=== PATIENT | male | born 1955 | race Caucasian/White ===

== ENCOUNTER → 2016-08-17 | Outpatient (CLI) | payer BC ==
[2016-08-17 12:34] LABS: Basophils # (A) 0.1 k/uL (0-0.2); Basophils % (A) 1 %; CH 32.1; CHCM 34.5; Eosinophils # (A) 0.3 k/uL (0-0.7); Eosinophils % (A) 3 %; HCT 40.5 % (39.0-53.0); HDW 2.82; HGB 13.7 gm/dL (13.0-17.5); Luc # (Auto) 0.28; Luc % (Auto) 3; Lymphocytes % (A) 24 %; MCH 31.7 pg (25.0-35.0); MCHC 33.9 g/dL (31.0-37.0); MCV 93.4 fL (80.0-100.0); Monocytes # (A) 0.6 k/uL (0-1.0); Monocytes % (A) 7 %; Neutrophils # (A) 5.3 k/uL (1.3-7.7); Neutrophils % (A) 63 %; RBC 4.33 m/uL (4.30-5.90); RDW 13.2 % (11.5-15.5); WBC 8.5 k/uL (3.8-10.6); WBC (Perox) 8.29
--- NOTE | 2016-08-17 12:34 | US ---
EXAMINATION TYPE: US abdomen complete DATE OF EXAM: 08/17/2016 11:52 AM COMPARISON: NONE CLINICAL HISTORY: 60-year-old male R10 ABD PAIN. Abdominal pain superior to umbilicus for 4 days, jack n started out worse and has diminished since. TECHNIQUE: Multiple sonographic images of the abdomen are obtained. FINDINGS: Liver Length: 20.2 cm Gallbladder Wall: 0.2 cm CBD: 0.7 cm Spleen: 9.7 cm Right Kidney: 11.4 x 5.6 x 6.3 cm Left Kidney: 10.2 x 4.9 x 7.1 cm Pancreas: Suboptimal visualization of the pancreatic tail secondary to shadowing from bowel gas. Vis ualized portions show no gross abnormal. Liver: Enlarged, echogenic, and markedly attenuating. This secondarily limits assessment for focal le charbel. Gallbladder: No abnormal gallbladder distention, wall thickening, pericholecystic fluid, or shadowin g calculi. Evidence for sonographic Natarajan's sign: no CBD: Mildly dilated. Spleen: wnl Right Kidney: No hydronephrosis Left Kidney: No hydronephrosis. There is a 1.8 cm cyst in the upper pole. 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 Impression to Megha Lorenzo at office @1200 IMPRESSION: 1. Hepatomegaly and marked hepatic steatosis. 2. Mild dilatation of the bile duct may be chronic for this patient. Correlate with alkaline phosphat ase and bilirubin levels to exclude dilatation from biliary obstruction. 3. Targeted scanning along the supraumbilical region shows no discrete hernia or other abnormality.
[2016-08-17 13:08] LABS: ALT 35 U/L (21-72); AST 26 U/L (17-59); Alkaline Phosphatase 63 U/L (38-126); Amylase 55 U/L (30-110); Anion Gap 12 mmol/L; Blood Urea Nitrogen 14 mg/dL (9-20); Calcium 9.4 mg/dL (8.4-10.2); Carbon Dioxide 29 mmol/L (22-30); Chloride 100 mmol/L (98-107); Glucose 110 mg/dL (74-99); Non-African American GFR(MDRD) >60 (>60 ml/min/1.73 sqM); Potassium 4.5 mmol/L (3.5-5.1); Sodium 141 mmol/L (137-145); Total Bilirubin 0.8 mg/dL (0.2-1.3); Total Protein 7.7 g/dL (6.3-8.2)
== END | disposition home or self-care (01) ==
LOC: RADUSWWP 11:05
PROVIDERS: ATTEND Family Medicine
DX: K76.0 Fatty (change of) liver, not elsewhere classified (principal); R16.0 Hepatomegaly, not elsewhere classified; K83.8 Other specified diseases of biliary tract
CPT/HCPCS: 36415; 76700; 80053; 82150; 83690; 85025

== ENCOUNTER → 2018-12-16 | Outpatient (CLI) | payer OTHER ==
--- NOTE | 2018-12-16 13:16 | US ---
EXAMINATION TYPE: US carotid duplex BILAT DATE OF EXAM: 12/16/2018 COMPARISON: NONE CLINICAL HISTORY: R20.2 paresthesia of skin, E78.2 mixed hyperlipide. Pt states left side numbness EXAM MEASUREMENTS: RIGHT: Peak Systolic Velocity (PSV) cm/sec ----- Right CCA: 66.0 ----- Right ICA: 75.6 ----- Right ECA: 115.2 ICA/CCA ratio: 1.1 RIGHT: End Diastole cm/sec ----- Right CCA: 19.7 ----- Right ICA: 32.0 ----- Right ECA: 24.5 LEFT: Peak Systolic Velocity (PSV) cm/sec ----- Left CCA: 85.5 ----- Left ICA: 79.1 ----- Left ECA: 140.0 ICA/CCA ratio: 0.9 LEFT: End Diastole cm/sec ----- Left CCA: 30.4 ----- Left ICA: 28.5 ----- Left ECA: 25.2 VERTEBRALS (direction of flow): Right Vertebral: Antegrade Left Vertebral: Antegrade Rhythm: Normal No significant stenosis seen IMPRESSION: Mild degree of grayscale atheromatous plaquing with no sonographically evident hemodynami lara significant stenosis within either internal carotid artery or common carotid artery. Criteria for Assigning % of Stenosis / Diameter reduction (Estimation based on the indirect measurements of the internal carotid artery velocities (ICA PSV). 1. Normal (no stenosis)=ICA PSV < 125 cm/s: ratio < 2.0: ICA EDV<40 cm/s. 2. Less than 50% stenosis=ICA PSV < 125 cm/s: ratio < 2.0: ICA EDV<40 cm/s. 3. 50 to 69% stenosis=ICA PSV of 125 to 230 cm/s: ration 2.0 ? 4.0: ICA EDV 40-100 cm/s. 4. Greater than 70% stenosis to near occlusion= ICA PSV > 230 cm/s: ratio > 4.0: ICA EDV > 100 cm/s. 5. Near occlusion= ICA PSV velocities may be low or undetectable: variable ratio and ICA EDV. 6. Total occlusion=unable to detect flow.
== END | disposition home or self-care (01) ==
LOC: RADUSWWP 12:35
PROVIDERS: ATTEND Family Medicine
DX: I77.89 Other specified disorders of arteries and arterioles (principal); R20.2 Paresthesia of skin; E78.2 Mixed hyperlipidemia; E11.65 Type 2 diabetes mellitus with hyperglycemia
CPT/HCPCS: 93880

== ENCOUNTER 2020-01-04 14:10 | Observation (INO) | payer OTHER ==
[2020-01-04] MEDS ORDERED: SODIUM CHLORIDE 0.9% 500 ML 500 ML IV STA (14:47)
[2020-01-04] MEDS ORDERED: ONDANSETRON 4 MG/2 ML VIAL IVP STA (14:47)
[2020-01-04] MEDS ORDERED: PANTOPRAZOLE 40 MG/10 ML VIAL IVP STA (14:47)
--- NOTE | 2020-01-04 15:01 | ED ---
GI Bleed HPI - General Chief complaint: GI Bleed Stated complaint: Sent by pcp,Blood in stool Time Seen by Provider: 01/04/20 14:41 Source: patient Mode of arrival: ambulatory Limitations: no limitations - History of Present Illness Initial comments: Patient is 64-year-old male presenting to the emergency department with chief complaint of rectal bleeding. Patient reports this started 2 days ago when he noticed right red blood mixed with dark loose stools. States he does have some abdominal bloating but is able to pass gas. Denies any nausea vomiting. He does have history of hemorrhoids but no pain. States they're more of a discomfort rather than a pain. States he saw his primary care physician who advised him to come to the emergency department for possible anemia. Patient denies any weakness, chest pain, shortness of breath or back pain. She denies increased urgency, frequency or dysuria. Denies testicular pain or swelling. Denies any penile discharge. - Related Data Home Medications Medication Instructions Recorded Confirmed Ezetimibe/Simvastatin [Vytorin 1 tab PO HS 01/04/20 01/04/20 10-80 mg] Fish Oil/Dha/Epa [Fish Oil 1,200 2 cap PO DAILY 01/04/20 01/04/20 mg Fish Oil] RX: Omeprazole 20 mg PO DAILY 01/04/20 01/04/20 lisinopriL [Zestril] 2.5 mg PO DAILY 01/04/20 01/04/20 metFORMIN HCL ER [Glucophage Xr] 2,000 mg PO PC-SUPPER 01/04/20 01/04/20 Allergies Allergy/AdvReac Type Severity Reaction Status Date / Time No Known Allergies Allergy Verified 01/04/20 16:26 Review of Systems ROS Statement: Those systems with pertinent positive or pertinent negative responses have been documented in the HPI. ROS Other: All systems not noted in ROS Statement are negative. Past Medical History Past Medical History: Diabetes Mellitus, GERD/Reflux, Hyperlipidemia, Hypertension Past Surgical History: Hernia Repair, Prostate Surgery Past Psychological History: No Psychological Hx Reported Smoking Status: Never smoker Past Alcohol Use History: Occasional Past Drug Use History: Marijuana General Exam Limitations: no limitations General appearance: alert, in no apparent distress Head exam: Present: atraumatic, normocephalic, normal inspection Eye exam: Present: normal appearance, PERRL, EOMI Pupils: Present: normal accommodation ENT exam: Present: normal exam, normal oropharynx, mucous membranes moist, TM's normal bilaterally, normal external ear exam Neck exam: Present: normal inspection, full ROM. Absent: tenderness Respiratory exam: Present: normal lung sounds bilaterally. Absent: respiratory distress, wheezes, rales Cardiovascular Exam: Present: regular rate, normal rhythm, normal heart sounds GI/Abdominal exam: Present: soft, normal bowel sounds. Absent: distended, tenderness, guarding, rebound Rectal exam: Present: normal inspection, normal rectal tone, hemorrhoids (small external hemorrhoid at 7:00) Extremities exam: Present: normal inspection, normal capillary refill, other (+2 ulnar radial pulses bilateral.). Absent: full ROM, tenderness, pedal edema Back exam: Present: normal inspection, full ROM. Absent: tenderness, CVA tenderness (R), CVA tenderness (L) Neurological exam: Present: alert, oriented X3, normal gait Psychiatric exam: Present: normal affect, normal mood Skin exam: Present: warm, dry, intact, normal color Course Vital Signs 01/04/20 01/04/20 14:28 15:48 Temperature 98.0 F Pulse Rate 81 72 Respiratory 18 16 Rate Blood Pressure 121/70 111/66 O2 Sat by Pulse 97 97 Oximetry Medical Decision Making - Medical Decision Making Patient is a 64-year-old male presenting to the emergency department with a chief complaint of abdominal pain. Physical examination reveals a small external hemorrhoid at 7:00. It does not appear to be bleeding. Rest of physical examination is unremarkable. He does have slight anemia with hemoglobin of 11.5. No signs of by mouth mucus membrane. Patient does not have any weakness. Occult stool was positive. Patient will be admitted for further medical management. Case discussed with . ADmitting Dr Roni HEREDIA on consult - Lab Data Result diagrams: 01/04/20 15:23 01/04/20 15:23 Lab Results 01/04/20 01/04/20 01/04/20 Range/Units 15:23 15:23 15:23 WBC 8.5 (3.8-10.6) k/uL RBC 3.64 L (4.30-5.90) m/uL Hgb 11.5 L (13.0-17.5) gm/dL Hct 33.0 L (39.0-53.0) % MCV 90.7 (80.0-100.0) fL MCH 31.6 (25.0-35.0) pg MCHC 34.9 (31.0-37.0) g/dL RDW 13.3 (11.5-15.5) % Plt Count 309 (150-450) k/uL Neutrophils % 63 % Lymphocytes % 26 % Monocytes % 5 % Eosinophils % 4 % Basophils % 0 % Neutrophils # 5.4 (1.3-7.7) k/uL Lymphocytes # 2.2 (1.0-4.8) k/uL Monocytes # 0.4 (0-1.0) k/uL Eosinophils # 0.3 (0-0.7) k/uL Basophils # 0.0 (0-0.2) k/uL APTT 23.4 (22.0-30.0) sec Sodium (137-145) mmol/L Potassium (3.5-5.1) mmol/L Chloride (98-107) mmol/L Carbon Dioxide (22-30) mmol/L Anion Gap mmol/L BUN (9-20) mg/dL Creatinine (0.66-1.25) mg/dL Est GFR (CKD-EPI)AfAm (>60 ml/min/1.73 sqM) Est GFR (CKD-EPI)NonAf (>60 ml/min/1.73 sqM) Glucose (74-99) mg/dL Plasma Lactic Acid Eleazar (0.7-2.0) mmol/L Calcium (8.4-10.2) mg/dL Total Bilirubin (0.2-1.3) mg/dL AST (17-59) U/L ALT (4-49) U/L Alkaline Phosphatase (38-126) U/L Troponin I (0.000-0.034) ng/mL Total Protein (6.3-8.2) g/dL Albumin (3.5-5.0) g/dL Stool Occult Blood Positive (Negative) Blood Type Blood Type Recheck Bld Type Recheck Status Antibody Screen Spec Expiration Date 01/04/20 01/04/20 01/04/20 Range/Units 15:23 15:23 15:23 WBC (3.8-10.6) k/uL RBC (4.30-5.90) m/uL Hgb (13.0-17.5) gm/dL Hct (39.0-53.0) % MCV (80.0-100.0) fL MCH (25.0-35.0) pg MCHC (31.0-37.0) g/dL RDW (11.5-15.5) % Plt Count (150-450) k/uL Neutrophils % % Lymphocytes % % Monocytes % % Eosinophils % % Basophils % % Neutrophils # (1.3-7.7) k/uL Lymphocytes # (1.0-4.8) k/uL Monocytes # (0-1.0) k/uL Eosinophils # (0-0.7) k/uL Basophils # (0-0.2) k/uL APTT (22.0-30.0) sec Sodium 135 L (137-145) mmol/L Potassium 4.1 (3.5-5.1) mmol/L Chloride 106 (98-107) mmol/L Carbon Dioxide 22 (22-30) mmol/L Anion Gap 7 mmol/L BUN 18 (9-20) mg/dL Creatinine 0.83 (0.66-1.25) mg/dL Est GFR (CKD-EPI)AfAm >90 (>60 ml/min/1.73 sqM) Est GFR (CKD-EPI)NonAf >90 (>60 ml/min/1.73 sqM) Glucose 180 H (74-99) mg/dL Plasma Lactic Acid Eleazar 1.1 (0.7-2.0) mmol/L Calcium 8.9 (8.4-10.2) mg/dL Total Bilirubin 0.3 (0.2-1.3) mg/dL AST 23 (17-59) U/L ALT 16 (4-49) U/L Alkaline Phosphatase 71 (38-126) U/L Troponin I <0.012 (0.000-0.034) ng/mL Total Protein 6.2 L (6.3-8.2) g/dL Albumin 3.8 (3.5-5.0) g/dL Stool Occult Blood (Negative) Blood Type Blood Type Recheck Bld Type Recheck Status Antibody Screen Spec Expiration Date 01/04/20 Range/Units 15:23 WBC (3.8-10.6) k/uL RBC (4.30-5.90) m/uL Hgb (13.0-17.5) gm/dL Hct (39.0-53.0) % MCV (80.0-100.0) fL MCH (25.0-35.0) pg MCHC (31.0-37.0) g/dL RDW (11.5-15.5) % Plt Count (150-450) k/uL Neutrophils % % Lymphocytes % % Monocytes % % Eosinophils % % Basophils % % Neutrophils # (1.3-7.7) k/uL Lymphocytes # (1.0-4.8) k/uL Monocytes # (0-1.0) k/uL Eosinophils # (0-0.7) k/uL Basophils # (0-0.2) k/uL APTT (22.0-30.0) sec Sodium (137-145) mmol/L Potassium (3.5-5.1) mmol/L Chloride (98-107) mmol/L Carbon Dioxide (22-30) mmol/L Anion Gap mmol/L BUN (9-20) mg/dL Creatinine (0.66-1.25) mg/dL Est GFR (CKD-EPI)AfAm (>60 ml/min/1.73 sqM) Est GFR (CKD-EPI)NonAf (>60 ml/min/1.73 sqM) Glucose (74-99) mg/dL Plasma Lactic Acid Eleazar (0.7-2.0) mmol/L Calcium (8.4-10.2) mg/dL Total Bilirubin (0.2-1.3) mg/dL AST (17-59) U/L ALT (4-49) U/L Alkaline Phosphatase (38-126) U/L Troponin I (0.000-0.034) ng/mL Total Protein (6.3-8.2) g/dL Albumin (3.5-5.0) g/dL Stool Occult Blood (Negative) Blood Type O Positive Blood Type Recheck No Previous Record Bld Type Recheck Status CABO Indicated Antibody Screen NEGATIVE Spec Expiration Date 01/07/2020 - 2322 Disposition Clinical Impression: Anemia, GI bleed Disposition: ADMITTED IP TO THIS [facility] Condition: Stable Instructions (If sedation given, give patient instructions): Gastrointestinal Bleeding (ED) Additional Instructions: Patient will be admitted Is patient prescribed a controlled substance at d/c from ED?: No Referrals: Jared Corral MD [Primary Care Provider] - 1-2 days Time of Disposition: 16:36
[2020-01-04 15:46] LABS: ALT 16 U/L (4-49); AST 23 U/L (17-59); African American GFR (CKD) >90 (>60 ml/min/1.73 sqM); Albumin 3.8 g/dL (3.5-5.0); Alkaline Phosphatase 71 U/L (38-126); Anion Gap 7 mmol/L; Blood Urea Nitrogen 18 mg/dL (9-20); Calcium 8.9 mg/dL (8.4-10.2); Carbon Dioxide 22 mmol/L (22-30); Chloride 106 mmol/L (98-107); Glucose 180 mg/dL (74-99); Non-African American GFR(CKD) >90 (>60 ml/min/1.73 sqM); Potassium 4.1 mmol/L (3.5-5.1); Sodium 135 mmol/L (137-145); Total Bilirubin 0.3 mg/dL (0.2-1.3); Total Protein 6.2 g/dL (6.3-8.2)
[2020-01-04 15:53] LABS: Basophils % (A) 0 %; Eosinophils # (A) 0.3 k/uL (0-0.7); Eosinophils % (A) 4 %; HGB 11.5 gm/dL (13.0-17.5); Lymphocytes # (A) 2.2 k/uL (1.0-4.8); Lymphocytes % (A) 26 %; MCH 31.6 pg (25.0-35.0); MCHC 34.9 g/dL (31.0-37.0); MCV 90.7 fL (80.0-100.0); Mean Platelet Volume 7.4; Monocytes # (A) 0.4 k/uL (0-1.0); Monocytes % (A) 5 %; Neutrophils # (A) 5.4 k/uL (1.3-7.7); Neutrophils % (A) 63 %; Platelet Count 309 k/uL (150-450); RBC 3.64 m/uL (4.30-5.90); RDW 13.3 % (11.5-15.5); WBC 8.5 k/uL (3.8-10.6)
[2020-01-04] MEDS ORDERED: LORazepam 2 MG/ML INJ IV PRN (16:31)
[2020-01-04] MEDS ORDERED: NALOXONE 0.4 MG/ML 1 ML VIAL IV PRN (16:31)
[2020-01-04] MEDS ORDERED: ONDANSETRON 4 MG/2 ML VIAL IVP PRN (16:31)
[2020-01-04] MEDS ORDERED: HYDROmorphone 0.5 MG/0.5 ML SYRINGE IVP PRN (16:31)
[2020-01-04] MEDS ORDERED: ACETAMINOPHEN TAB 325 MG TAB PO PRN (16:31)
[2020-01-04] MEDS: SODIUM CHLORIDE 0.9% 1,000 ML IV SCH (19:17)
[2020-01-04] MEDS ORDERED: HYDROcodone/APAP 5-325MG 1 EACH TAB PO PRN (22:00)
[2020-01-04] MEDS ORDERED: TEMAZEPAM 15 MG CAP PO PRN (22:00)
--- NOTE | 2020-01-05 01:16 | HP ---
HISTORY AND PHYSICAL CHIEF COMPLAINT: GI bleed. HISTORY OF PRESENT ILLNESS: This 64-year-old gentleman with a past medical history of history of diabetes, GERD, hypertension, hyperlipidemia, being followed by Dr. John Corral in the outpatient setting noted to have rectal bleeding for the past 2 days. The patient initially was bright red mixed with dark loose stools. The patient has some abdominal bloating also. The patient came to [facility] and admitted for further evaluation and treatment. The initial hemoglobin was found to be 11.5. Patient did have colonoscopy several years ago by Dr. Sin, which apparently was within normal limits. Surgical records are not available at this time. There is no history of any fever, rigors. No history of headache. No history of any weight loss or weight gain at this time. PAST MEDICAL HISTORY: Diabetes mellitus, GERD, hypertension, hyperlipidemia, history of hernia surgery, history of prostate surgery. MEDICATIONS: Medications prior to admission: 1. Zestril. 2. Omeprazole. 3. Fish oil. 4. Zetia. 5. Simvastatin. 6. Glucophage XR. ALLERGIES: None. FAMILY HISTORY: No history of heart disease or strokes in the family. SOCIAL HISTORY: Occasional alcohol, THC. REVIEW OF SYSTEMS: ENT: No diminished hearing or diminished vision. CARDIOVASCULAR SYSTEM: No angina. RESPIRATORY SYSTEM: No cough or hemoptysis. GI: As mentioned earlier. : No dysuria. NERVOUS SYSTEM: No numbness or weakness. ALLERGY/IMMUNOLOGY: No asthma or hayfever. MUSCULOSKELETAL: As mentioned earlier. HEMATOLOGY/ONCOLOGY: No history of anemia. ENDOCRINE: Diabetes. CONSTITUTIONAL: As mentioned earlier. DERMATOLOGY: Negative. RHEUMATOLOGY: Negative. PSYCHIATRY: As mentioned earlier. PHYSICAL EXAMINATION: The patient is alert and oriented x3. Pulse 73, blood pressure 124/70, respiration 20, temperature 98.1, pulse ox 95% on room air. HEENT: Conjunctivae normal. NECK: No jugular venous distention. CARDIOVASCULAR: S1, S2 muffled. RESPIRATORY: Breath sounds diminished at the bases. No rhonchi, no crackles. ABDOMEN: Soft, obese, nontender. No mass palpable. LEGS: No edema, no swelling NERVOUS SYSTEM: Higher functions as mentioned earlier. Moves all 4 limbs. No focal motor or sensory deficits. LYMPHATICS: No lymphadenopathy of the neck, axillae or groin. SKIN: No ulcer, rash or bleeding. JOINTS: No active deforming arthropathy. LABS: WBC 8.5, hemoglobin 11.5, sodium 135. Other labs are noted. Stool OB is positive. ASSESSMENT: 1. Possible acute lower gastrointestinal bleeding with acute blood loss anemia. Rule out diverticulosis. 2. Rule out peptic ulcer disease. 3. Hyponatremia. 4. Diabetes mellitus type 2. 5. Gastroesophageal reflux disease. 6. Hypertension. 7. Hyperlipidemia. 8. Hernia surgery. 9. History of prostate surgery. 10.Obesity with body mass of 32.1. RECOMMENDATIONS AND DISCUSSION: In this 64-year-old gentleman who presented with multiple medical issues, we will monitor the patient closely. Continue the current medications. Continue symptomatic treatment. Gastroenterology consultation. Monitor hemoglobin closely. Symptomatic treatment. Resume the home medications. Prognosis guarded because of multiple complex medical issues. Further recommendations to follow. A copy of dictation forwarded to Dr. Jared Corral, who is the primary physician. MMKALIL / MIGELN: [id number] /
[2020-01-05 06:45] LABS: Glucose,Whole Blood 140 mg/dL (75-99)
[2020-01-05] MEDS: SODIUM CHLORIDE 0.9% 1,000 ML IV SCH ×2 (06:57→19:26)
[2020-01-05] MEDS: metFORMIN 500 MG TAB PO SCH ×2 (08:43→17:31)
[2020-01-05] MEDS: PANTOPRAZOLE 40 MG TABLET PO SCH (08:43)
[2020-01-05 11:26] LABS: Glucose,Whole Blood 108 mg/dL (75-99)
[2020-01-05 11:57] LABS: Basophils # (A) 0.1 k/uL (0-0.2); Basophils % (A) 1 %; Eosinophils # (A) 0.3 k/uL (0-0.7); Eosinophils % (A) 4 %; HCT 31.1 % (39.0-53.0); HGB 10.1 gm/dL (13.0-17.5); Lymphocytes # (A) 1.9 k/uL (1.0-4.8); Lymphocytes % (A) 21 %; MCH 30.3 pg (25.0-35.0); MCHC 32.4 g/dL (31.0-37.0); MCV 93.3 fL (80.0-100.0); Mean Platelet Volume 7.6; Monocytes # (A) 0.5 k/uL (0-1.0); Monocytes % (A) 5 %; Neutrophils % (A) 68 %; Platelet Count 293 k/uL (150-450); RBC 3.33 m/uL (4.30-5.90); RDW 13.9 % (11.5-15.5); WBC 8.9 k/uL (3.8-10.6)
[2020-01-05 12:09] LABS: African American GFR (CKD) >90 (>60 ml/min/1.73 sqM); Anion Gap 4 mmol/L; Blood Urea Nitrogen 18 mg/dL (9-20); Calcium 8.8 mg/dL (8.4-10.2); Carbon Dioxide 27 mmol/L (22-30); Chloride 107 mmol/L (98-107); Glucose 107 mg/dL (74-99); Non-African American GFR(CKD) 87 (>60 ml/min/1.73 sqM); Potassium 4.8 mmol/L (3.5-5.1); Sodium 138 mmol/L (137-145)
[2020-01-05 13:30] VITALS: BMI 32.1
--- NOTE | 2020-01-05 15:48 | PN ---
PROGRESS NOTE DATE OF SERVICE: 01/05/2020 This 64-year-old gentleman, admitted with GI bleed, is being closely monitored for anemia and gastroenterology following the patient planning EGD and colonoscopy. No chest pain. No palpitations. No fever. PHYSICAL EXAMINATION: Alert and oriented times three. Pulse 60, blood pressure 107/64. Respirations 20. Temp 97.6, pulse ox 100 percent on room air. HEENT: Conjunctivae normal. NECK: No JVD. CARDIOVASCULAR: S1, S2 muffled. RESPIRATORY: Breath sounds diminished in the bases. No rhonchi. No crackles. ABDOMEN: Soft, nontender. No mass palpable. LEGS are no swelling. No edema. NERVOUS SYSTEM: No focal deficits. LABS: WBC 8.2, hemoglobin 10.1. Other labs are noted. ASSESSMENT: 1. Acute lower gastrointestinal bleeding with acute blood loss anemia. Rule out diverticulosis or peptic ulcer disease. 2. Hyponatremia. 3. Diabetes mellitus type 2. 4. Gastroesophageal reflux disease. 5. Hypertension. 6. Hyperlipidemia. 7. History of hernia surgery. 8. History of prostate surgery. 9. Obesity with body mass of 32.1. RECOMMENDATIONS AND DISCUSSION: Recommend to continue current medications, symptomatic treatment. Otherwise, at this time, I recommend serial hemoglobins. Endoscopy by Gastroenterology. Otherwise, guarded prognosis. Further recommendations to follow. MMODL / IJN: [id number] /
[2020-01-05] MEDS ORDERED: PEG 3350-NA SULF,BICARB,CL/KCL 4,000 ML BOTTLE PO ONE (17:00)
[2020-01-05 17:12] LABS: Glucose,Whole Blood 127 mg/dL (75-99)
[2020-01-05 19:56] LABS: Glucose,Whole Blood 107 mg/dL (75-99)
--- NOTE | 2020-01-05 20:50 | CONS ---
CONSULTATION DATE OF DICTATION: January 05, 2020. REASON FOR CONSULTATION: GI bleed. HISTORY OF PRESENT ILLNESS: The patient is a 64-year-old pleasant white male with history of diabetes mellitus, hypertension, hyperlipidemia, was admitted to the hospital complaining of dark colored stools for the last 2 weeks duration. Subsequently they became maroon-colored for the last 2 days. He had about 3 episodes yesterday, 2 this morning. Denies any abdominal pain. No nausea, no vomiting. No fever, chills, or night sweats. Initial hemoglobin was 11.5 g/dL. Today it is down to 10.8 g/dL. Never had these symptoms in the past. Does recall having a colonoscopy about [address] Sin which was normal. Denies any recent NSAID use. No prior history of peptic ulcer disease. PAST MEDICAL HISTORY: Diabetes mellitus, hypertension, hyperlipidemia, gastroesophageal reflux disease. PAST SURGICAL HISTORY: Hernia repair, prostate surgery. MEDICATIONS: At home, Glucophage, simvastatin, Zetia, fish oil, omeprazole, and Zestril. ALLERGIES: None. SOCIAL HISTORY: No smoking. No alcohol use. FAMILY HISTORY: Unremarkable. REVIEW OF SYSTEMS: CARDIOPULMONARY: Denies any chest pain or shortness of breath. GENITOURINARY: No dysuria or hematuria. MUSCULOSKELETAL unremarkable. SKIN unremarkable. ENDOCRINE unremarkable. PSYCHIATRIC unremarkable. NEUROLOGY unremarkable. ENT/VISION: Unremarkable. CONSTITUTIONAL: No recent weight loss. No fever, chills, night sweats. PHYSICAL EXAMINATION: Blood pressure is 115/69, pulse 65, temperature 98. HEENT examination unremarkable. Conjunctivae pink. Sclerae anicteric. Oral cavity no lesions. NECK no JVD. No lymph node enlargement. CHEST: Clear to auscultation. HEART: Regular rate and rhythm. ABDOMEN was soft. It was nontender, nondistended. Bowel sounds are positive. No organomegaly. EXTREMITIES: No pedal edema. SKIN no rashes. NEUROLOGIC: Alert and oriented x3. No focal deficits. LABS: WBC 8.9, hemoglobin 10.1, platelets normal. Yesterday hemoglobin was 11.5. BUN and creatinine are within normal limits. ALT/AST/T-bilirubin and alkaline phosphatase are normal. Stool occult blood was positive. IMPRESSION: Acute gastrointestinal bleed. The patient initially had dark colored stools, subsequently turned maroon-colored stools, likely lower source of bleeding but cannot rule out upper gastrointestinal source of bleeding. Hemodynamically stable. He had 2 maroon-colored bowel movements this morning. Last colonoscopy was 5 years ago and according to the patient, it was within normal limits. RECOMMENDATIONS: 1. Clear liquid diet. 2. Proceed with EGD and colonoscopy tomorrow. 3. Continue with Protonix 40 mg daily. 4. Monitor CBC daily. 5. We will follow with you closely. Thank you for this consultation. MMODL / IJN: [id number] /
[2020-01-06 03:19] VITALS: RESP 17
[2020-01-06 06:35] LABS: Glucose,Whole Blood 112 mg/dL (75-99)
[2020-01-06] MEDS ORDERED: PROPOFOL 10 MG/ML 20 ML VIAL IV ONE (06:58)
[2020-01-06] MEDS ORDERED: IV FLUID CONTINUATION 1,000 ML IV ONE (07:03)
[2020-01-06] MEDS ORDERED: SODIUM CHLORIDE 0.9% 500 ML 500 ML IV ONE (07:32)
--- NOTE | 2020-01-06 07:36 | P.PCN ---
Date of Procedure: 01/06/20 Procedure(s) Performed: Brief history: Patient is a pleasant 64-year-old white male admitted to the hospital with acute GI bleed. He had multiple episodes of maroon-colored stools for the last 2 days' duration. He is hence scheduled for an upper endoscopy and colonoscopy to evaluate the source of recent GI bleed. Procedure performed: Esophagogastroduodenoscopy with biopsy Colonoscopy Preoperative diagnosis: Acute GI bleed Anesthesia: MAC Procedure: After informed consent was obtained from the patient was brought into the endoscopy unit and IV sedation was administered by anesthesia under continuous monitoring. Initially upper endoscopy was done. The Olympus GF 160 video endoscope was inserted inserted into the mouth and esophagus intubated without any difficulty and was gradually advanced into the stomach and duodenum and carefully examined. The bulb and second part of the duodenum appeared normal. The scope was then withdrawn into the stomach adequately insufflated with air and upon careful examination the antrum had antral erosions and biopsies were done from this area. The body, cardia and fundus appeared normal. The scope was then withdrawn into the esophagus. The GE junction was located at 40 cm to the incisors. small sliding type hiatal hernia noted. It appeared regular with no erythema erosions or ulcerations. Rest of the esophagus appeared normal. Patient tolerated the procedure well. At this time the patient continued to remain sedation. Initial digital rectal examination was normal. Olympus CF 160 video colonoscope was then inserted into the rectum and gradually advanced to the cecum without any difficulty. Careful examination was performed as the scope was gradually being withdrawn. The prep was good. No active bleeding noted. The cecum, ascending colon, transverse colon, descending colon, sigmoid colon and rectum appeared normal. diffuse diverticula cyst noted throughout the entire colon. Retroflexion was performed in the rectum and grade 2 internal hemorrhoids ere noted. Patient tolerated the procedure well. Impression: 1. Upper endoscopy revealed antral erosive gastritis and small hiatal hernia 2. Colonoscopy revealed diffuse diverticulosis throughout the entire colon and small internal hemorrhoids. No evidence of colorectal neoplasia Recommendations: Findings of this examination were discussed with the patient as well as his family. He was advised to follow with the biopsy results. Recent bleeding most likely diverticular in nature. Diet will be advanced as tolerated and can be discharged home today.
[2020-01-06] MEDS: SODIUM CHLORIDE 0.9% 1,000 ML IV SCH (07:49)
[2020-01-06] MEDS: metFORMIN 500 MG TAB PO SCH (07:52)
[2020-01-06] MEDS: PANTOPRAZOLE 40 MG TABLET PO SCH (07:52)
[2020-01-06 07:55] VITALS: BP 116/69; PULSE 63; TEMP 98.4
[2020-01-06 08:44] LABS: African American GFR (CKD) >90 (>60 ml/min/1.73 sqM); Anion Gap 7 mmol/L; Blood Urea Nitrogen 10 mg/dL (9-20); Carbon Dioxide 25 mmol/L (22-30); Chloride 105 mmol/L (98-107); Glucose 122 mg/dL (74-99); Non-African American GFR(CKD) >90 (>60 ml/min/1.73 sqM); Potassium 3.9 mmol/L (3.5-5.1); Sodium 137 mmol/L (137-145)
[2020-01-06 08:55] LABS: Basophils % (A) 0 %; Eosinophils # (A) 0.3 k/uL (0-0.7); Eosinophils % (A) 3 %; HCT 31.1 % (39.0-53.0); HGB 10.2 gm/dL (13.0-17.5); Lymphocytes % (A) 24 %; MCH 30.3 pg (25.0-35.0); MCHC 32.8 g/dL (31.0-37.0); MCV 92.2 fL (80.0-100.0); Mean Platelet Volume 7.6; Monocytes # (A) 0.4 k/uL (0-1.0); Monocytes % (A) 5 %; Neutrophils # (A) 5.7 k/uL (1.3-7.7); Neutrophils % (A) 67 %; Platelet Count 303 k/uL (150-450); RBC 3.37 m/uL (4.30-5.90); RDW 13.9 % (11.5-15.5); WBC 8.6 k/uL (3.8-10.6)
--- NOTE | 2020-01-06 18:37 | DS ---
DISCHARGE SUMMARY DATE OF SERVICE: 01/06/2020 FINAL DIAGNOSES: 1. Acute lower gastrointestinal bleeding with acute blood loss anemia, status post EGD and colonoscopy showing erosive gastritis and small hiatal hernia and diffuse diverticulosis and internal hemorrhoids. 2. Hyponatremia. 3. Diabetes mellitus type 2. 4. Gastroesophageal reflux disease. 5. Hypertension. 6. Hyperlipidemia. 7. History of hernia surgery. 8. History of prostate surgery. 9. Obesity with body mass index of 32.9. DISCHARGE DISPOSITION: The patient will be discharged in a stable condition with guarded prognosis. HISTORY OF PRESENT ILLNESS: This 64-year-old gentleman with a past medical history of multiple medical problems admitted with acute lower gastrointestinal bleed. Dr. Fierro performed EGD/colonoscopy. Findings as above. Please refer to Dr. Fierro's notes for further information. Hemoglobin is currently 10.2. Recommend close outpatient followup. On exam, vitals are stable. Cardiovascular: S1, S2. Abdomen soft. Nervous system: No focal deficits. DISCHARGE ADVICE AND MEDICATIONS: 1. Discharge diet is cardiac diet. 2. Activity limited until followup. 3. Follow up with Dr. John Corral in 1-2 days. 4. Follow up with Dr. Fierro as recommended. 5. Fish oil 1 p.o. daily. 6. Metformin 2 g daily. 7. Vitamin 1 p.o. q.h.s. 8. Zestril 2.5 mg. 9. Protonix 40 mg b.i.d. Once again, the patient discharged in stable condition with guarded prognosis. MMODL / IJN: [id number] /
== END 2020-01-06 11:41 | disposition home or self-care (01) ==
LOC: EC 14:10 → 1SOBS 16:45
PROVIDERS: ADMIT Internal Medicine; ATTEND Internal Medicine
DX: K92.2 Gastrointestinal hemorrhage, unspecified (principal); D62 Acute posthemorrhagic anemia; K29.50 Unspecified chronic gastritis without bleeding; E11.9 Type 2 diabetes mellitus without complications; E66.9 Obesity, unspecified; E78.5 Hyperlipidemia, unspecified; E87.1 Hypo-osmolality and hyponatremia; I10 Essential (primary) hypertension; K21.9 Gastro-esophageal reflux disease without esophagitis; K44.9 Diaphragmatic hernia without obstruction or gangrene; K57.30 Diverticulosis of large intestine without perforation or abscess without bleeding; K64.1 Second degree hemorrhoids; K64.4 Residual hemorrhoidal skin tags; Z68.32 Body mass index [BMI] 32.0-32.9, adult
CPT/HCPCS: 96361 ×3; 96374; 96375; 99285; 36415; 93005; 86900; 86901; 88305; 80053; 80048 ×2; 83605; 84484; 85025 ×3; 85730; 86850; 82272; 45378; 43239; G0378 ×3; J2405; J2704; C9113

== ENCOUNTER → 2020-02-23 | Outpatient (CLI) | payer OTHER ==
--- NOTE | 2020-02-23 09:18 | CT ---
EXAMINATION TYPE: CT chest wo con DATE OF EXAM: 02/23/2020 COMPARISON: None HISTORY: chronic cough, abnormal CXR CT DLP: 483.[address] of the chest was performed with lung and mediastinal window settings submitted. The la ck of contrast limits evaluation of the vascular, mediastinal and parenchymal structures including th e upper abdomen. LUNGS: There is moderate pulmonary fibrosis identified throughout all lung banks. There is no eviden ce for focal consolidation. Emphysematous bleb right lung base. No nodule or mass. No volume loss or effusion. MEDIASTINUM/JEET: Thoracic aorta is of normal caliber with limited evaluation given lack o f contrast. The heart is not enlarged. No evidence for mediastinal mass. No lymph nodes greater t beatty 1cm. UPPER ABDOMEN: No significant abnormality is seen. OTHER: No significant other abnormality. IMPRESSION: 1. Moderate pulmonary fibrosis.
== END | disposition home or self-care (01) ==
LOC: RADCTMAIN 08:41
PROVIDERS: ATTEND Family Medicine
DX: J84.10 Pulmonary fibrosis, unspecified (principal)
CPT/HCPCS: 71250